=== PATIENT | female | born 1995 | race Caucasian/White ===

== ENCOUNTER → 2018-09-30 | Outpatient (REF) | payer OTHER ==
[2018-10-03 14:08] LABS: HPV HYBRID CAPTURE II Negative (Negative)
== END ==
LOC: M LAB LCGH 11:48
PROVIDERS: ATTEND Nurse Practitioner Adult Health
DX: Z12.4 Encounter for screening for malignant neoplasm of cervix (principal)
CPT/HCPCS: 87624; G0123